=== PATIENT | male | born 1965 | race Caucasian/White ===

== ENCOUNTER 2020-06-04 04:11 | Emergency (ER) | payer BC ==
[~2020-06-04] VITALS: Ht 182.9 cm; Wt 107.0 kg
[2020-06-04] MEDS ORDERED: NORVASC 2.5 MG2.5 M1 PO (04:25)
[2020-06-04] MEDS ORDERED: OMEPRAZOLE 20 M20 M1 PO (04:25)
[2020-06-04 05:27] LABS: ABSOLUTE NEUTROPHILS 10.9 thou/uL (1.4-8.2); BASOPHILS 0.8 % (0.0-2.0); EOSINOPHILS 1.6 % (0.0-3.0); HEMATOCRIT 51.1 % (42.0-52.0); HEMOGLOBIN 17.3 gm/dL (14.0-18.0); MCH 28.3 pg (26.0-34.0); MCHC 33.8 g/dL (28.0-37.0); MCV 83.9 fL (80.0-100.0); MONOCYTES 5.1 % (1.0-8.0); PLATELET COUNT 269 thou/uL (150-400); POLYS 78.5 % (36.0-66.0); RBC 6.09 mil/uL (4.50-6.00); RDW 13.9 % (10.5-14.5); WBC 13.9 thou/uL (4.0-11.0)
[2020-06-04 05:31] LABS: ANION GAP 10 mmol/L (7-16); BUN 8 mg/dL (7-18); CALCIUM 8.9 mg/dL (8.5-10.1); CHLORIDE 99 mmol/L (98-107); CO2 26 mmol/L (21-32); CREATININE 1.2 mg/dL (0.7-1.3); GLUCOSE 145 mg/dL (74-106); POTASSIUM 3.5 mmol/L (3.5-5.1); SODIUM 135 mmol/L (136-145)
[2020-06-04 05:37] LABS: ALBUMIN 3.6 g/dL (3.4-5.0); DIRECT BILIRUBIN < 0.1 mg/dL (<0.1-0.2); LIPASE 111 U/L (73-393); SGOT 19 U/L (15-37); SGPT 36 U/L (30-65); TOTAL BILIRUBIN 0.4 mg/dL (0.2-1.0); TOTAL PROTEIN 7.4 g/dL (6.4-8.2)
[2020-06-04] MEDS ORDERED: CARAFATE1 GM PO (05:58)
[2020-06-04 06:16] VITALS: BP 149/92
== END 2020-06-04 06:17 | disposition home or self-care (01) ==
LOC: ER 04:11
PROVIDERS: Emergency Medicine
DX: K29.70 Gastritis, unspecified, without bleeding (principal); Z79.899 Other long term (current) drug therapy